=== PATIENT | female | born 2000 | race American Indian/Alaskan Native ===

== ENCOUNTER 2021-06-11 08:04 | Emergency (ER) | payer SELFPAY ==
[2021-06-11 08:08] VITALS: BP 128/81
[2021-06-11] MEDS ORDERED: LACTATED RINGERS 1,000 ML IV ONE (10:12)
--- NOTE | 2021-06-11 10:43 | Emergency Department Report ---
ED General Adult HPI - General Chief complaint: Nausea/Vomiting/Diarrhea Stated complaint: N/V/D Time Seen by Provider: 06/11/21 09:38 Source: EMS Mode of arrival: Stretcher Limitations: No Limitations - History of Present Illness Initial comments: 20-year-old -[place] female patient presents with complaints of nausea and vomiting x6 days. Patient states she was diagnosed with COVID-19 2 days ago. She also admits to cough, body aches and chills, and some diarrhea. She denies any melena/hematochezia, hematemesis/coffee-ground emesis, hemoptysis, hormone use, history of DVT/PE/cancer, or leg pain/swelling. No shortness of breath per patient. Patient states she received Zofran via EMS and is feeling much better. No urinary symptoms per patient. - Related Data Previous Rx's Medication Instructions Recorded Last Taken Type Metoclopramide [Reglan] 10 mg PO TID PRN #30 tab 06/11/21 Unknown Rx diphenhydrAMINE [Benadryl CAP] 25 mg PO Q8HR PRN #30 capsule 06/11/21 Unknown Rx Allergies Allergy/AdvReac Type Severity Reaction Status Date / Time No Known Allergies Allergy Verified 06/11/21 08:08 ED Review of Systems ROS: Stated complaint: N/V/D Other details as noted in HPI Constitutional: malaise, weakness. denies: chills, diaphoresis, fever Respiratory: cough. denies: shortness of breath Cardiovascular: denies: chest pain Gastrointestinal: nausea, vomiting, diarrhea. denies: abdominal pain, const ipation, hematemesis, melena, hematochezia Genitourinary: denies: urgency, dysuria, frequency, hematuria, discharge Musculoskeletal: denies: back pain Skin: denies: rash, lesions, change in color Neurological: denies: headache ED Past Medical Hx - Past Medical History Previous Medical History?: No - Medications Home Medications: Home Medications Medication Instructions Recorded Confirmed Last Taken Type Metoclopramide [Reglan] 10 mg PO TID PRN #30 tab 06/11/21 Unknown Rx diphenhydrAMINE [Benadryl CAP] 25 mg PO Q8HR PRN #30 capsule 06/11/21 Unknown Rx ED Physical Exam - General Limitations: No Limitations General appearance: alert, in no apparent distress - Head Head exam: Present: atraumatic, normocephalic - Eye Eye exam: Present: normal appearance. Absent: scleral icterus - Neck Neck exam: Present: normal inspection - Respiratory Respiratory exam: Present: normal lung sounds bilaterally. Absent: respiratory distress, wheezes, rales, rhonchi, stridor - Cardiovascular Cardiovascular Exam: Present: regular rate, normal rhythm - GI/Abdominal GI/Abdominal exam: Present: soft, normal bowel sounds. Absent: distended, tenderness, guarding, rebound, rigid - Back Exam Back exam: Absent: CVA tenderness (R), CVA tenderness (L) - Neurological Exam Neurological exam: Present: alert, oriented X3, normal gait - Psychiatric Psychiatric exam: Present: normal affect, normal mood - Skin Skin exam: Present: warm, dry, intact, normal color. Absent: rash ED Course Vital Signs 06/11/21 08:07 Temperature 98 F Pulse Rate 91 H Respiratory 16 Rate Blood Pressure 128/81 [Right] O2 Sat by Pulse 99 Oximetry ED Medical Decision Making - Lab Data Result diagrams: 06/11/21 10:41 06/11/21 10:41 - Medical Decision Making 20-year-old -[place] female patient presents with complaints of nausea and vomiting x6 days. Patient states she was diagnosed with COVID-19 2 days ago. She also admits to cough, body aches and chills, and some diarrhea. She denies any melena/hematochezia, hematemesis/coffee-ground emesis, hemoptysis, hormone use, history of DVT/PE/cancer, or leg pain/swelling. No shortness of breath per patient. Patient states she received Zofran via EMS and is feeling much better. No urinary symptoms per patient. Critical care attestation.: If time is entered above; I have spent that time in minutes in the direct care of this critically ill patient, excluding procedure time. ED Disposition Clinical Impression: Nausea/vomiting in Disposition: 01 HOME / SELF CARE / HOMELESS Condition: Stable Instructions: Hyperemesis Gravidarum Prescriptions: diphenhydrAMINE [Benadryl CAP] 25 mg PO Q8HR PRN #30 capsule PRN Reason: Nausea Metoclopramide [Reglan] 10 mg PO TID PRN #30 tab PRN Reason: Nausea Referrals: [facility] [Provider Group] - 3-5 Days [facility] [Provider Group] - 3-5 Days [facility] [Provider Group] - 3-5 Days Forms: Work/School Release Form(ED)
[2021-06-11 10:57] LABS: Basophils % (Auto) 0.3 % (0.0-1.8); Eosinophils % (Auto) 0.4 % (0.0-4.3); Hematocrit 41.5 % (30.3-42.9); Hemoglobin 13.9 gm/dl (10.1-14.3); Lymphocytes # (Auto) 1.5 K/mm3 (1.2-5.4); Lymphocytes % (Auto) 28.6 % (13.4-35.0); Mean Corpuscular HGB Conc 33 % (30-34); Mean Corpuscular Volume 82 fl (79-97); Monocytes # (Auto) 0.6 K/mm3 (0.0-0.8); Platelet Count 206 K/mm3 (140-440); Red Blood Count 5.05 M/mm3 (3.65-5.03); Red Cell Distribution Width 13.3 % (13.2-15.2)
[2021-06-11] MEDS ORDERED: diphenhydrAMINE 50 MG/ML VIAL IV ONE (11:19)
[2021-06-11] MEDS ORDERED: METOCLOPRAMIDE 10 MG/2 ML INJ IV ONE (11:19)
[2021-06-11 11:44] LABS: Alanine Aminotransferase 57 units/L (7-56); Albumin 4.1 g/dL (3.9-5); Blood Urea Nitrogen 8 mg/dL (7-17); Calcium 9.3 mg/dL (8.4-10.2); Hemolysis Index 7
[2021-06-11 11:50] LABS: BUN/Creatinine Ratio 11
[2021-06-11 13:50] LABS: Bilirubin,Urine NEG (Negative); Blood,Urine NEG (Negative); Color,Urine Yellow (Yellow); Mucus,Urine FEW /HPF
== END 2021-06-11 15:01 | disposition home or self-care (01) ==
LOC: ED 08:04
DX: O21.9 Vomiting of pregnancy, unspecified (principal); Z3A.00 Weeks of gestation of pregnancy not specified
CPT/HCPCS: 36415; 80053; 81001; 84702; 84703; 85025; 96361; 96374; 96375; 99284; J1200; J2765; J7120

== ENCOUNTER 2021-07-09 10:50 | Inpatient (IN) | payer MEDICAID, OTHER ==
--- NOTE | 2021-07-09 11:42 | History and Physical Report ---
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 Family/Genetic History: none Social history: no significant social history - Obstetrical History Expected Date of Delivery: 02/06/22 Actual Gestation: 9 Week(s) 5 Day(s) : 1 Medications and Allergies Allergies Allergy/AdvReac Type Severity Reaction Status Date / Time No Known Allergies Allergy Verified 06/11/21 08:08 Home Medications Medication Instructions Recorded Confirmed Last Taken Type Metoclopramide [Reglan] 10 mg PO TID PRN #30 tab 06/11/21 Unknown Rx diphenhydrAMINE [Benadryl CAP] 25 mg PO Q8HR PRN #30 capsule 06/11/21 Unknown Rx Active Meds: Active Medications Dextrose/Lactated Ringer's (D5lr) 1,000 mls @ 500 mls/hr IV DIRECT RUTHANN Stop: 07/10/21 13:59 Dextrose/Lactated Ringer's (D5lr) 1,000 mls @ 150 mls/hr IV DIRECT RUTHANN Metoclopramide HCl (Metoclopramide 10 Mg/2 Ml Inj) 10 mg IV Q6H RUTHANN Multivitamins/Iron/Calcium ( [id number] Fumarate-Folic Acid Vit Tab) 1 each PO QDAY RUTHANN Ondansetron HCl (Ondansetron 4 Mg/2 Ml Inj) 4 mg IV Q6H PRN PRN Reason: N/V unrelieved by Reglan Promethazine HCl (Promethazine 25 Mg Rect Supp) 25 mg LA Q6H RUTHANN - Physical Exam Breasts: Positive: deferred Cardiovascular: Regular rate Lungs: Positive: Clear to auscultation Abdomen: Positive: normal appearance, soft, normal bowel sounds Genitourinary (Female): Positive: normal external genitalia, normal perenium Extremities: Positive: normal Deep Tendon Reflex Grade: Normal +2 Results All other labs normal. Assessment and Plan Admission Lab Ultrasound for dating and viability IV fluids Advance diet as tolerated Antiemetic Consider steroids if necessary Vira Estrada MD
[2021-07-09] MEDS ORDERED: D5W/LACTATED RINGERS 1,000 ML IV SCH (12:00)
--- NOTE | 2021-07-09 13:24 | Ultrasound Report ---
ULTRASOUND OBSTETRIC INDICATION: Evaluate well-being. Hyperemesis. TECHNIQUE: Transabdominal. COMPARISON: None available. FINDINGS: GESTATIONAL SAC: Well-defined oval shape and intrauterine in location. YOLK SAC: No significant abnormality. EMBRYO/FETUS: No significant abnormality. - Dugger-Rump Length = 4.2 cm = 11 weeks, 0 day(s). - Heart Rate = 160 beats per minute. ADNEXA: A 4.2 cm probable right ovarian corpus luteum cyst is noted. No other significant abnormality . FREE FLUID: None. ADDITIONAL FINDINGS: None. IMPRESSION: 1. Single, living intrauterine with estimated sonographic age of 11 weeks, 0 day(s). 2. No acute findings. Signer Name: Mark Garnica MD Signed: 07/09/2021 1:20 PM Workstation Name: [id number]
[2021-07-09 15:50] LABS: Basophils % (Auto) 0.4 % (0.0-1.8); Hematocrit 36.9 % (30.3-42.9); Hemoglobin 12.7 gm/dl (10.1-14.3); Lymphocytes # (Auto) 1.1 K/mm3 (1.2-5.4); Lymphocytes % (Auto) 14.3 % (13.4-35.0); Mean Corpuscular HGB Conc 35 % (30-34); Mean Corpuscular Volume 83 fl (79-97); Monocytes # (Auto) 0.4 K/mm3 (0.0-0.8); Monocytes % (Auto) 5.8 % (0.0-7.3); Platelet Count 225 K/mm3 (140-440); Red Blood Count 4.46 M/mm3 (3.65-5.03); Red Cell Distribution Width 14.1 % (13.2-15.2)
[2021-07-09] MEDS: PRENATAL VIT27-FE FUMARATE-FOLIC ACID VIT TAB PO SCH (15:55)
[2021-07-09] MEDS: METOCLOPRAMIDE 10 MG/2 ML INJ IV SCH ×2 (15:55→22:30)
[2021-07-09] MEDS: PROMETHAZINE 25 MG RECT SUPP PR SCH ×2 (15:55→22:30)
[2021-07-09] MEDS: ONDANSETRON 4 MG/2 ML INJ IV PRN (15:56)
[2021-07-09 16:03] LABS: Alanine Aminotransferase 62 units/L (7-56); Albumin 4.1 g/dL (3.9-5); Blood Urea Nitrogen 7 mg/dL (7-17); Calcium 9.2 mg/dL (8.4-10.2); Hemolysis Index 10
[2021-07-09] MEDS: D5W/LACTATED RINGERS 1,000 ML IV SCH (16:04)
[2021-07-09 16:10] LABS: BUN/Creatinine Ratio 14
[2021-07-09] MEDS ORDERED: dexAMETHasone 10 MG in SODIUM CHLORIDE 0.9% 50 ML IV ONE (17:27)
[2021-07-10] MEDS: METOCLOPRAMIDE 10 MG/2 ML INJ IV SCH ×4 (00:32→23:37)
[2021-07-10] MEDS: ONDANSETRON 4 MG/2 ML INJ IV PRN ×3 (00:32→18:10)
[2021-07-10] MEDS: PROMETHAZINE 25 MG RECT SUPP PR SCH ×4 (00:32→18:10)
[2021-07-10 08:33] LABS: Alanine Aminotransferase 78 units/L (7-56); Albumin 3.6 g/dL (3.9-5); Blood Urea Nitrogen 4 mg/dL (7-17); Calcium 9.1 mg/dL (8.4-10.2); Hemolysis Index 17
[2021-07-10 08:34] LABS: BUN/Creatinine Ratio 8
--- NOTE | 2021-07-10 10:17 | Progress Note ---
Assessment and Plan Hyperemesis gravidarum in first trimester still with nausea 1. will need daily wt and continue IV fluids and zofran prn 2. Consult Dr. Asif CATALAN, who recommends zofran pump and case mgt consulted 3. Decadron received noted and Dr. Asif CATALAN made aware Plan of care discussed with pt and all questions encouraged and answered. Subjective Date of service: 07/10/21 Principal diagnosis: HD#2, IUP at 9wks 6days with hyperemesis gravidarum Interval history: pt last vomit was last night. pt denies pelvic pain or dysuria. pt refuses any other nausea med except zofran which she states is the only one that works. Objective - Constitutional Vitals: Vital Signs - 12hr 07/10/21 07/10/21 07/10/21 00:18 04:09 07:22 Temperature 98.7 F 98.5 F 98.3 F Pulse Rate 90 87 89 Respiratory 18 18 18 Rate Blood Pressure 123/70 115/68 113/60 O2 Sat by Pulse 98 94 98 Oximetry 07/10/21 08:32 Temperature Pulse Rate Respiratory Rate Blood Pressure O2 Sat by Pulse 98 Oximetry General appearance: Present: no acute distress - Neck Neck: normal ROM - Respiratory Respiratory effort: normal - Breasts Breasts: deferred - Cardiovascular Rhythm: regular Extremities: No edema - Gastrointestinal General gastrointestinal: Present: soft, non-tender - Neurologic Neurologic: moves all extremities - Psychiatric Psychiatric: cooperative - Labs CBC & Chem 7: 07/09/21 15:18 07/10/21 07:25 Labs: Abnormal lab results 07/09/21 07/09/21 07/09/21 Range/Units 15:18 15:18 15:18 MCHC 35 H (30-34) % Lymph # (Auto) 1.1 L (1.2-5.4) K/mm3 Seg Neutrophils % 79.5 H (40.0-70.0) % Sodium 134 L (137-145) mmol/L Potassium (3.6-5.0) mmol/L Carbon Dioxide 19 L (22-30) mmol/L BUN (7-17) mg/dL Creatinine 0.5 L (0.6-1.2) mg/dL Glucose 119 H (65-100) mg/dL AST (5-40) units/L ALT 62 H (7-56) units/L Albumin (3.9-5) g/dL HCG, Quant [id number] H (0-4) mIU/mL 07/10/21 Range/Units 07:25 MCHC (30-34) % Lymph # (Auto) (1.2-5.4) K/mm3 Seg Neutrophils % (40.0-70.0) % Sodium 135 L (137-145) mmol/L Potassium 3.2 L (3.6-5.0) mmol/L Carbon Dioxide 19 L (22-30) mmol/L BUN 4 L (7-17) mg/dL Creatinine 0.5 L (0.6-1.2) mg/dL Glucose 101 H (65-100) mg/dL AST 57 H (5-40) units/L ALT 78 H (7-56) units/L Albumin 3.6 L (3.9-5) g/dL HCG, Quant (0-4) mIU/mL Medications & Allergies - Medications Allergies/Adverse Reactions: Allergies No Known Allergies Allergy (Verified 06/11/21 08:08) Home Medications: Home Medications Medication Instructions Recorded Confirmed Last Taken Type Metoclopramide [Reglan] 10 mg PO TID PRN #30 tab 06/11/21 Unknown Rx diphenhydrAMINE [Benadryl CAP] 25 mg PO Q8HR PRN #30 capsule 06/11/21 Unknown Rx methylPREDNISolone [Medrol 4MG 4 mg PO TITRATE #21 07/09/21 Unknown Rx DOSEPAK (21 tabs)] Active Medications: Generic Name Dose Route Start Last Admin Trade Name Leobardo PRN Reason Stop Dose Admin Dextrose/Lactated Ringer's 1,000 mls @ 500 mls/hr 07/09/21 12:00 D5lr IV 07/10/21 13:59 DIRECT RUTHANN Dextrose/Lactated Ringer's 1,000 mls @ 150 mls/hr 07/09/21 12:00 07/09/21 16:04 D5lr IV 150 mls/hr DIRECT RUTHANN Administration Metoclopramide HCl 10 mg 07/09/21 12:00 07/10/21 05:58 Metoclopramide 10 Mg/2 Ml Inj IV Not Given Q6H RUTHANN Multivitamins/Iron/Calcium 1 each 07/10/21 10:00 07/09/21 15:55 [id number] Fumarate-Folic Acid Vit Tab PO 1 each QDAY RUTHANN Administration Ondansetron HCl 4 mg 07/09/21 11:29 07/10/21 05:58 Ondansetron 4 Mg/2 Ml Inj IV 4 mg Q6H PRN Administration N/V unrelieved by Felicita Promethazine HCl 25 mg 07/09/21 12:00 07/10/21 05:57 Promethazine 25 Mg Rect Supp [place] Not Given Q6H RUTHANN
[2021-07-10] MEDS: POTASSIUM CHLORIDE ER 20 MEQ TAB PO SCH (23:36)
[2021-07-11] MEDS: PROMETHAZINE 25 MG RECT SUPP PR SCH ×4 (02:07→18:26)
[2021-07-11] MEDS: POTASSIUM CHLORIDE ER 20 MEQ TAB PO SCH (03:36)
[2021-07-11] MEDS: D5W/LACTATED RINGERS 1,000 ML IV SCH ×2 (04:45→18:28)
--- NOTE | 2021-07-11 05:40 | Progress Note ---
Assessment and Plan Hyperemesis gravidarum with hypokalemia unresolved 1. Will give IV supplement and check labs 2. Await social media designer for zofran pump on Tuesday 3. Everyone notified to allow pt to sleep 4. Continue IV hydration and daily wt Subjective Date of service: 07/11/21 Principal diagnosis: HD#3, IUP at 10wks with hyperemesis gravidarum Interval history: pt vomited once with potassium repletion pill x1 and nurse did not call and notify me. pt states she has not gotten enough sleep because people kept comin in her room. Pt has not been weighed to determine wt gain/loss. Pt has tolerated clears diet says the nurse. pt denies dysuria or pelvic cramping Objective - Constitutional Vitals: Vital Signs - 12hr 07/10/21 07/10/21 07/11/21 20:10 20:30 00:13 Temperature 99.2 F 98.3 F Pulse Rate 77 90 Respiratory 20 18 Rate Blood Pressure 92/47 106/57 O2 Sat by Pulse 96 95 97 Oximetry 07/11/21 04:52 Temperature 98.4 F Pulse Rate 82 Respiratory 20 Rate Blood Pressure 98/58 O2 Sat by Pulse 92 Oximetry General appearance: Present: no acute distress - Neck Neck: normal ROM - Respiratory Respiratory effort: normal - Breasts Breasts: deferred - Cardiovascular Rhythm: regular Extremities: No edema - Gastrointestinal General gastrointestinal: Present: soft, non-tender - Genitourinary Female genitourinary: deferred - Integumentary Integumentary: warm, dry - Neurologic Neurologic: moves all extremities - Psychiatric Psychiatric: cooperative - Labs CBC & Chem 7: 07/09/21 15:18 07/10/21 07:25 Labs: Abnormal lab results 07/10/21 Range/Units 07:25 Sodium 135 L (137-145) mmol/L Potassium 3.2 L (3.6-5.0) mmol/L Carbon Dioxide 19 L (22-30) mmol/L BUN 4 L (7-17) mg/dL Creatinine 0.5 L (0.6-1.2) mg/dL Glucose 101 H (65-100) mg/dL AST 57 H (5-40) units/L ALT 78 H (7-56) units/L Albumin 3.6 L (3.9-5) g/dL Medications & Allergies - Medications Allergies/Adverse Reactions: Allergies No Known Allergies Allergy (Verified 06/11/21 08:08) Home Medications: Home Medications Medication Instructions Recorded Confirmed Last Taken Type Metoclopramide [Reglan] 10 mg PO TID PRN #30 tab 06/11/21 Unknown Rx diphenhydrAMINE [Benadryl CAP] 25 mg PO Q8HR PRN #30 capsule 06/11/21 Unknown Rx methylPREDNISolone [Medrol 4MG 4 mg PO TITRATE #21 07/09/21 Unknown Rx DOSEPAK (21 tabs)] Active Medications: Generic Name Dose Route Start Last Admin Trade Name Freq PRN Reason Stop Dose Admin Dextrose/Lactated Ringer's 1,000 mls @ 150 mls/hr 07/09/21 12:00 07/11/21 04:45 D5lr IV 150 mls/hr DIRECT RUTHANN Administration Potassium Chloride 10 meq in 100 mls @ 100 mls/hr 07/11/21 05:30 Kcl 10meq/100ml IV 07/11/21 09:29 Q1H RUTHANN Metoclopramide HCl 10 mg 07/09/21 12:00 07/10/21 23:37 Metoclopramide 10 Mg/2 Ml Inj IV 10 mg Q6H RUTHANN Administration Multivitamins/Iron/Calcium 1 each 07/10/21 10:00 07/09/21 15:55 [id number] Fumarate-Folic Acid Vit Tab PO 1 each QDAY RUTHANN Administration Ondansetron HCl 4 mg 07/09/21 11:29 07/10/21 18:10 Ondansetron 4 Mg/2 Ml Inj IV 4 mg Q6H PRN Administration N/V unrelieved by Felicita Promethazine HCl 25 mg 07/09/21 12:00 07/11/21 02:07 Promethazine 25 Mg Rect Supp [place] Not Given Q6H RUTHANN
[2021-07-11] MEDS: POTASSIUM CHLORIDE 10 MEQ 10 MEQ/100 ML BAG IV SCH ×4 (06:37→11:37)
[2021-07-11] MEDS: METOCLOPRAMIDE 10 MG/2 ML INJ IV SCH ×3 (06:37→18:22)
[2021-07-11] MEDS: PRENATAL VIT27-FE FUMARATE-FOLIC ACID VIT TAB PO SCH (11:07)
[2021-07-11] MEDS: ONDANSETRON 4 MG/2 ML INJ IV PRN (16:05)
[2021-07-12] MEDS: METOCLOPRAMIDE 10 MG/2 ML INJ IV SCH ×3 (00:28→12:59)
[2021-07-12 11:36] LABS: Alanine Aminotransferase 179 units/L (7-56); Albumin 3.8 g/dL (3.9-5); Blood Urea Nitrogen 3 mg/dL (7-17); Calcium 9.1 mg/dL (8.4-10.2); Hemolysis Index 1
[2021-07-12 11:45] LABS: BUN/Creatinine Ratio 6
--- NOTE | 2021-07-12 13:55 | Progress Note ---
Assessment and Plan A: at 10 weeks, 1 day gestation. Hyperemesis gravidarum. Hypokalemia, resolved. Patient refused to have IV re-started after it came out. P: Continue soft diet, bland foods. Encouraged patient to drink plenty of fluids. Case management to see patient for discharge planning and to arrange for zofran pump at home. Subjective - Subjective Date of service: 07/12/21 Principal diagnosis: HD#4, IUP at 10wks, 1 day with hyperemesis gravidarum Interval history: Tolerating soft diet. Also ate part of a subway sandwich and some lays potato chips and did not vomit. States she is not feeling any nausea right now. Denies abdominal pain or back pain. IV out and patient refused to have another IV. Tolerating po fluids. Awaiting case management/discharge planning so that she can have zofran pump at home when she is discharged. Patient reports: voiding normally, flatus, no dizzy ambulation Objective - Vital Signs Latest vital signs: Vital Signs Temp Pulse Resp BP BP BP Pulse Ox 07/12/21 12:38 98.9 F 92 H 123/63 07/12/21 09:25 99.2 F 95 H 18 102/59 100 07/12/21 08:00 98 07/12/21 06:19 98.1 F 79 16 111/55 100 07/12/21 00:45 98.9 F 78 18 97/56 99 07/11/21 21:03 99.3 F 94 H 18 109/59 100 07/11/21 19:50 99 07/11/21 16:23 98.2 F 88 18 113/70 99 Intake and Output 07/11/21 07/12/21 07/12/21 22:59 07:59 15:59 Intake Total 360 Output Total 600 Balance -240 Intake: Oral 360 Intake, Free Water Output: Urine 600 Void 600 Emesis Other: Total, Intake Amount 240 Total, Output Amount 200 Voiding Method Toilet # Voids 2 Void 2 Weight Patient Weight 07/13/21 00:59 Weight 79.1 kg - Exam Cardiovascular: Present: Regular rate, No murmurs Lungs: Present: Clear to auscultation Abdomen: Present: normal appearance, soft, normal bowel sounds. Absent: distention, tenderness, guarding, rigidity Extremities: Absent: tenderness, edema - Labs Labs: Abnormal lab results 07/12/21 Range/Units 10:42 Sodium 134 L (137-145) mmol/L Carbon Dioxide 20 L (22-30) mmol/L BUN 3 L (7-17) mg/dL Creatinine 0.5 L (0.6-1.2) mg/dL AST 94 H (5-40) units/L ALT 179 H (7-56) units/L Total Protein 6.0 L (6.3-8.2) g/dL Albumin 3.8 L (3.9-5) g/dL
[2021-07-12 15:20] LABS: Hepatitis B Surface Antigen Non-Reactive (Negative); Hepatitis C Virus Antibody Non-Reactive (NonReactive)
[2021-07-12 16:24] LABS: Free T4 (Free Thyroxine) 1.57 ng/dL (0.76-1.46)
--- NOTE | 2021-07-12 23:47 | Event Note ---
Date: 07/12/21 pt evaluated and pt states she has gained some wt today and is a little hesitant and scared of needles after using google to see how the zofran pump works. Pt will further discuss with case management the details tommorow. Pt still has nausea and has vomited only once this evening. Will continue present mgt. All questions encouraged and answered.
[2021-07-13] MEDS: METOCLOPRAMIDE 10 MG/2 ML INJ IV SCH (06:17)
--- NOTE | 2021-07-13 09:30 | Progress Note ---
Subjective - Subjective Date of service: 07/13/21 Principal diagnosis: HD#5, IUP at 10wks, 1 day with hyperemesis gravidarum Interval history: MEETS DC CRITERIA DC TO HOME WITH ZOFRAN PUMP Vira GEORGE MD Patient reports: new complaints Objective - Vital Signs Vital Signs: Vital Signs - 12hr 07/13/21 07/13/21 07/13/21 00:14 04:35 07:26 Temperature 99.1 F 98.7 F 98.7 F Pulse Rate 112 H 93 H 101 H Respiratory 20 20 18 Rate Blood Pressure 114/74 103/59 100/58 O2 Sat by Pulse 99 99 99 Oximetry - Labs Labs: Abnormal Labs 07/09/21 07/09/21 07/09/21 15:18 15:18 15:18 MCHC 35 H Lymph # (Auto) 1.1 L Seg Neutrophils % 79.5 H Sodium 134 L Potassium Carbon Dioxide 19 L BUN Creatinine 0.5 L Glucose 119 H AST ALT 62 H Total Protein Albumin Free T4 HCG, Quant [id number] H 07/10/21 07/12/21 07/12/21 07:25 10:42 Unknown MCHC Lymph # (Auto) Seg Neutrophils % Sodium 135 L 134 L Potassium 3.2 L Carbon Dioxide 19 L 20 L BUN 4 L 3 L Creatinine 0.5 L 0.5 L Glucose 101 H AST 57 H 94 H ALT 78 H 179 H Total Protein 6.0 L Albumin 3.6 L 3.8 L Free T4 1.57 H HCG, Quant Laboratory Results - last 24 hr 07/12/21 07/12/21 07/12/21 10:42 10:42 13:07 Sodium 134 L Potassium 3.7 Chloride 101.9 Carbon Dioxide 20 L Anion Gap 16 BUN 3 L Creatinine 0.5 L Estimated GFR > 60 BUN/Creatinine Ratio 6 Glucose 93 Calcium 9.1 Total Bilirubin 0.60 AST 94 H ALT 179 H Alkaline Phosphatase 85 Total Protein 6.0 L Albumin 3.8 L Albumin/Globulin Ratio 1.7 TSH Free T4 Urine Ketones 80 Hepatitis A IgM Ab Non-reactive Hep Bs Antigen Non-reactive Hep B Core IgM Ab Non-reactive Hepatitis C Antibody Non-reactive 07/12/21 Unknown Sodium Potassium Chloride Carbon Dioxide Anion Gap BUN Creatinine Estimated GFR BUN/Creatinine Ratio Glucose Calcium Total Bilirubin AST ALT Alkaline Phosphatase Total Protein Albumin Albumin/Globulin Ratio TSH 0.778 Free T4 1.57 H Urine Ketones Hepatitis A IgM Ab Hep Bs Antigen Hep B Core IgM Ab Hepatitis C Antibody
[2021-07-13] MEDS: PRENATAL VIT27-FE FUMARATE-FOLIC ACID VIT TAB PO SCH (10:29)
[2021-07-13 11:39] VITALS: BP 105/60
--- NOTE | 2021-07-13 16:11 | Discharge Summary ---
Providers - Providers Date of Admission: 07/09/21 11:46 Date of discharge: 07/13/21 Attending physician: THERON GEORGE MD 07/09/21 11:30 Consult to Dietitian/Nutrition [CONS] Routine Physician Instructions: Reason For Exam: Reason for Consult: hyper grav Reason for Consult: Malnutrition 07/10/21 08:21 Consult to Physician [CONS] Routine Comment: Consulting Provider: [facility] Physician Instructions: Reason For Exam: hyperemesis gravidarum 07/10/21 10:14 Consult to Case Management [CONS] Routine Services Needed at Discharge: Home Health Services Notified:: COMPUTER INPUT Phone number called:: [phone] Was contact made?: No Comment:: hyperemesis gravidarum, first trimester 07/10/21 15:36 Consult to Case Management [CONS] Urgent Services 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 Primary care physician: KATELIN MILLAN Hospitalization Reason for admission: other (hyperemesis gravidarum) Disposition: 30 STILL A PATIENT Plan - Discharge Medications Prescriptions: methylPREDNISolone [Medrol 4MG DOSEPAK (21 tabs)] 4 mg PO TITRATE #21 Prednisone [predniSONE 10 mg (6-Day Pack, 21 Tabs)] 10 mg PO .TAPER #1 - Provider Discharge Summary Activity: routine Diet: routine Additional instructions: [] Smoking cessation referral if applicable(refer to patient education folder for contact #) [] Refer to [facility]'s [facility] Booklet Call your doctor immediately for: * Fever > 100.5 * Heavy vaginal bleeding ( >1 pad per hour) * Severe persistent headache * Shortness of breath * Reddened, hot, painful area to leg or breast * Drainage or odor from incision. * Keep incision clean and dry at all times and follow doctor's instructions regarding bathing/showering - Follow up plan Follow up: KATELIN MILLAN MD [Primary Care Provider] - 7 Days Forms: [facility] Discharge Summary
== END 2021-07-13 11:30 | disposition home or self-care (01) | DRG 781 ==
LOC: 3A 10:50 → UNDOADMIN 10:50 → OB 11:46
PROVIDERS: ADMIT Obstetrics & Gynecology; ATTEND Obstetrics & Gynecology
DX: O21.1 Hyperemesis gravidarum with metabolic disturbance (principal); Z3A.10 10 weeks gestation of pregnancy
CPT/HCPCS: 36415; 76801; 80053; 80074; 82010; 84439; 84443; 84702; 85025; 87086; G0378; J7060; J2405; J2765; J3480; J7121; U0003

== ENCOUNTER 2021-11-16 13:53 | Outpatient (CLI) | payer OTHER | END 2021-11-16 18:50 | disposition home or self-care (01) | LOC: TRG 13:53 → LAB 13:53 → APU 17:34 → LAB 18:50 | PROVIDERS: ATTEND Obstetrics & Gynecology | DX: O26.892 Other specified pregnancy related conditions, second trimester (principal); Z67.41 Type O blood, Rh negative; Z3A.27 27 weeks gestation of pregnancy | CPT/HCPCS: 86850; 86900; 86901; 96372; J2790 ==